=== PATIENT | female | born 1975 | race African-American/Black ===

== ENCOUNTER 2022-02-17 16:53 | Emergency (ER) | payer MEDICAID ==
[~2022-02-17] VITALS: Ht 147.3 cm; Wt 74.8 kg
[2022-02-17] MEDS ORDERED: cloNIDine HCL 0.1 MG TAB ONE (17:54)
[2022-02-17] MEDS ORDERED: cloNIDine HCL 0.1 MG TAB PO ONE (18:00)
[2022-02-17] MEDS ORDERED: cefTRIAXone W LIDOCAINE 1 GM IM IM ONE (19:45)
[2022-02-17] MEDS ORDERED: IBUP800T26 PO (20:06)
[2022-02-17] MEDS ORDERED: AMOX-277 PO (20:06)
[2022-02-17 21:27] VITALS: BP 135/85
== END 2022-02-17 21:29 | disposition home or self-care (01) ==
LOC: ER 16:53
DX: K04.7 Periapical abscess without sinus (principal)
CPT/HCPCS: 96372; 99283; J0696